=== PATIENT | female | born 1975 | race Two or more races ===

== ENCOUNTER 2021-11-20 13:29 | Emergency (ER) | payer MEDICAID ==
[~2021-11-20] VITALS: Ht 160 cm; Wt 77.3 kg
[2021-11-20] MEDS ORDERED: KETOROLAC TROMETHAMINE 30 MG/ML VIAL IM ONE (14:45)
[2021-11-20 15:35] VITALS: BP 120/69
[2021-11-20] MEDS ORDERED: IBUP-2070 PO (16:33)
== END 2021-11-20 16:49 | disposition home or self-care (01) ==
LOC: EMS 13:33
DX: U07.1 COVID-19 (principal); E03.9 Hypothyroidism, unspecified
CPT/HCPCS: 71045; 96372; 99283; J1885